=== PATIENT | male | born 1995 | race Caucasian/White ===

== ENCOUNTER 2016-11-23 03:41 | Emergency (ER) | payer OTHER ==
[~2016-11-23] VITALS: Ht 190.5 cm; Wt 82.0 kg
[2016-11-23 03:47] VITALS: TEMP 36.7; Ht 190.5 cm; Wt 82.0 kg
[2016-11-23 03:56] VITALS: O2SAT 100
[2016-11-23 05:18] LABS: BASO % 1.2 %; BASO ABS # 0.07 K/uL (0-0.2); COMPLETE YES; EOS % 3.6 %; HEMATOCRIT 47.4 % (42-52); IG% 0.2 %; LYMPH ABS # 1.41 K/uL (1.2-3.4); MEAN CELL VOLUME 90.8 fL (80-100); MEAN CORPUSCULAR HEMOGLOBIN 32.6 pg (25-34); MEAN CORPUSCULAR HGB CONC 35.9 g/dl (32-36); MEAN PLATELET VOLUME 11.7 fL (7.4-10.4); MONO % 13.8 %; NEUT % 57.2 %; PLATELET COUNT 199 K/uL (130-400); RED BLOOD COUNT 5.22 M/uL (4.7-6.1); WHITE BLOOD COUNT 5.88 K/uL (4.8-10.8)
[2016-11-23 05:36] LABS: ALT/SGPT 25 U/L (12-78); AST/SGOT 20 U/L (15-37); BLOOD UREA NITROGEN 6 mg/dl (7-18); BUN/CREATININE RATIO 6.4 (10-20); CALCIUM 9.1 mg/dl (8.5-10.1); CARBON DIOXIDE 27 mmol/L (21-32); CHLORIDE 105 mmol/L (98-107); CREATININE 0.94 mg/dl (0.60-1.40); GLUCOSE 83 mg/dl (70-99); POTASSIUM 4.1 mmol/L (3.5-5.1); SODIUM 139 mmol/L (136-145)
[2016-11-23 05:41] LABS: ALB/GLOB RATIO 1.1 (0.9-2); ALKALINE PHOSPHATASE 119 U/L (45-117); CKMB/CK RATIO 0.8 (0-3.0)
--- NOTE | 2016-11-23 05:52 | DIAGNOSTIC IMAGING REPORT ---
CHEST 2 VIEWS ROUTINE HISTORY: 21 years-old Male acute left-sided chest pain. COMPARISON: None available TECHNIQUE: Frontal and lateral views of the chest FINDINGS: Cardiomediastinal and hilar silhouettes are within normal limits. No pneumothorax, pleural effusion or focal airspace consolidation. No overt pulmonary edema. The bones are grossly intact. IMPRESSION: No acute cardiopulmonary process. The above report was generated using voice recognition software. It may contain grammatical, syntax or spelling errors. Electronically signed by: Abraham Muhammad M.D. 11/23/2016 5:51 AM Dictated Date/Time: 11/23/2016 5:50 AM
[2016-11-23] MEDS ORDERED: KETOROLAC TROMETHAMINE 30 MG/ML VIAL IV STA (06:33)
[2016-11-23 07:01] VITALS: BP 126/73; PULSE 55; O2SAT 99
--- NOTE | 2016-11-23 07:10 | EMERGENCY ROOM VISIT NOTE ---
History Report prepared by Quoc: Jeannie Zapata Under the Supervision of: Dr. Beth Lowe D.O. First contact with patient: 04:03 Chief Complaint: RIB PAIN Stated Complaint: SLIGHT CHEST PAIN ON LEFTSIDE,WORSE WITH DEEP DONNA History of Present Illness The patient is a 21 year old male who presents to the Emergency Room with complaints of persistent chest pain starting around 0300. The patient went to sleep around 1999 yesterday evening and woke up around 0300. He had a slight pain in the left side of his chest upon waking. The pain worsens with deep breaths. He notes that 2 days ago, he fell to the ground while playing volleyball and injured his right knee. He denies any trauma to the chest at that time. He reports that over the past week he has been having spots in his vision intermittently. 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 He also had an episode of overwhelming anxiety last week. He had never had anxiety like that before. He denies any SOB, cough, sore throat, fever, chills, abdominal pain, urinary symptoms, leg cramping, or leg swelling. He denies any changes to his bowel movements. He denies any health problems. He does not smoke. He drove to and from [place] last weekend. His grandmother has a history of multiple blood clots. Source of History: patient Onset: 299 Position: chest (left) Quality: other (pain) Timing: other (persistent) Modifying Factors (Worsening): breathing Associated Symptoms: No fevers, No chills, No sorethroat, No cough, No SOB, No abdominal pain, No urinary symptoms Note: Pt reports anxiety, spots in vision. Pt denies leg swelling, leg cramping. Review of Systems See HPI for pertinent positives & negatives. A total of 10 systems reviewed and were otherwise negative. Past Medical & Surgical Medical Problems: (1) No chronic problems Family History Blood clots Social History Smoking Status: Never Smoker Alcohol Use: occasionally Drug Use: none Housing Status: lives with roommate Occupation Status: [employer] student Current/Historical Medications No Active Prescriptions or Reported Meds Allergies Coded Allergies: No Known Allergies (Unverified , 11/23/16) Physical Exam Vital Signs Date Time Temp Pulse Resp B/P (MAP) Pulse Ox O2 Delivery O2 Flow Rate FiO2 8/27/17 07:01 55 15 126/73 99 11/23/16 06:21 61 11/23/16 05:34 54 21 118/76 99 Room Air 11/23/16 04:02 56 11/23/16 03:56 100 Room Air 11/23/16 03:47 36.7 71 20 134/62 100 Room Air Physical Exam HEENT: Head - normocephalic and atraumatic Pupils are equal, round, and reactive to light. Extraocular eye muscles are intact, and sclera are anicteric. Nose - moist nasal mucosa without discharge. Mouth - moist buccal mucosa. Oropharynx is nonerythematous and there is no tonsillar exudate or edema noted. Neck: Supple; no JVD, nuchal rigidity, cervical lymphadenopathy, or auscultated bruits. Heart: Regular rate and rhythm. There is a normal S1 and S2 with no murmurs, clicks, or gallops appreciated. Lungs: Clear to auscultation bilaterally with no wheezes, rales, or rhonchi. Abdomen: Soft, completely nontender, nondistended, with good bowel sounds. There are no palpable pulsatile masses or hepatosplenomegaly. There is no guarding, rigidity, or rebound noted. Extremities: No evidence of cyanosis, clubbing, or edema. The patient has no palpable cords in his calves. He is unable to fully extend the right knee from the volleyball injury. There are easily palpable peripheral pulses. Skin: warm and dry with good turgor and no rashes. Medical Decision & Procedures ER Provider Diagnostic Interpretation: X-ray results as stated below per interpretation by me and the radiologist: CHEST 2 VIEWS ROUTINE HISTORY: 21 years-old Male acute left-sided chest pain. COMPARISON: None available TECHNIQUE: Frontal and lateral views of the chest FINDINGS: Cardiomediastinal and hilar silhouettes are within normal limits. No pneumothorax, pleural effusion or focal airspace consolidation. No overt pulmonary edema. The bones are grossly intact. IMPRESSION: No acute cardiopulmonary process. The above report was generated using voice recognition software. It may contain grammatical, syntax or spelling errors. Electronically signed by: Abraham Muhammad M.D. 11/23/2016 5:51 AM Dictated Date/Time: 11/23/2016 5:50 AM Laboratory Results 11/23/16 05:00 Red Blood Count 5.22, Mean Corpuscular Volume 90.8, Mean Corpuscular Hemoglobin 32.6, Mean Corpuscular Hemoglobin Concent 35.9, Mean Platelet Volume 11.7, Neutrophils (%) (Auto) 57.2, Lymphocytes (%) (Auto) 24.0, Monocytes (%) (Auto) 13.8, Eosinophils (%) (Auto) 3.6, Basophils (%) (Auto) 1.2, Neutrophils # (Auto ) 3.37, Lymphocytes # (Auto) 1.41, Monocytes # (Auto) 0.81, Eosinophils # (Auto ) 0.21, Basophils # (Auto) 0.07 11/23/16 05:00 Test 11/23/16 05:00 White Blood Count 5.88 K/uL (4.8-10.8) Red Blood Count 5.22 M/uL (4.7-6.1) Hemoglobin 17.0 g/dL (14.0-18.0) Hematocrit 47.4 % (42-52) Mean Corpuscular Volume 90.8 fL (80-100) Mean Corpuscular Hemoglobin 32.6 pg (25-34) Mean Corpuscular Hemoglobin Concent 35.9 g/dl (32-36) Platelet Count 199 K/uL (130-400) Mean Platelet Volume 11.7 fL (7.4-10.4) Neutrophils (%) (Auto) 57.2 % Lymphocytes (%) (Auto) 24.0 % Monocytes (%) (Auto) 13.8 % Eosinophils (%) (Auto) 3.6 % Basophils (%) (Auto) 1.2 % Neutrophils # (Auto) 3.37 K/uL (1.4-6.5) Lymphocytes # (Auto) 1.41 K/uL (1.2-3.4) Monocytes # (Auto) 0.81 K/uL (0.11-0.59) Eosinophils # (Auto) 0.21 K/uL (0-0.5) Basophils # (Auto) 0.07 K/uL (0-0.2) RDW Standard Deviation 41.8 fL (36.4-46.3) RDW Coefficient of Variation 12.5 % (11.5-14.5) Immature Granulocyte % (Auto) 0.2 % Immature Granulocyte # (Auto) 0.01 K/uL (0.00-0.02) D-Dimer 370 ug/L FEU (0-500) Anion Gap 7.0 mmol/L (3-11) Est Creatinine Clear Calc Drug Dose 143.0 ml/min Estimated GFR () 132.9 Estimated GFR (Non- 114.6 BUN/Creatinine Ratio 6.4 (10-20) Calcium Level 9.1 mg/dl (8.5-10.1) Total Bilirubin 0.6 mg/dl (0.2-1) Aspartate Amino Transf (AST/SGOT) 20 U/L (15-37) Alanine Aminotransferase (ALT/SGPT) 25 U/L (12-78) Alkaline Phosphatase 119 U/L (45-117) Total Creatine Kinase 232 U/L (39-308) Creatine Kinase MB 1.9 ng/ml (0.5-3.6) Creatine Kinase MB Ratio 0.8 (0-3.0) Troponin I < 0.015 ng/ml (0-0.045) Total Protein 8.0 gm/dl (6.4-8.2) Albumin 4.1 gm/dl (3.4-5.0) Globulin 3.9 gm/dl (2.5-4.0) Albumin/Globulin Ratio 1.1 (0.9-2) Laboratory results per my review. Medications Administered Medications (Trade) Dose Ordered Sig/Tiara Route Start Time Stop Time Status Last Admin Dose Admin Ketorolac Tromethamine (Toradol Inj) 30 mg NOW STAT IV 11/23/16 06:33 11/23/16 06:34 DC 11/23/16 06:40 30 MG Procedure Medications: Toradol Inj 30 mg IV. ECG Indication: chest pain Rate (beats per minute): 53 Rhythm: sinus bradycardia Findings: no acute ischemic change, no ectopy ED Course 0426: The patient was evaluated in room B4B. A complete history and physical examination were performed. Nursing notes and previous electronic medical records were reviewed. IV lock was established and labs were drawn as above. A twelve-lead EKG was obtained. A chest x-ray was performed. 0624: I went to reevaluate the patient, but he was in the bathroom. 0630: I reevaluated the patient. I reviewed the chest x-ray and laboratory findings with the patient He still has some discomfort in his chest. He will be given Toradol. His oxygen saturation was normal. 0633: Toradol Inj 30 mg IV. 0654: Upon reevaluation, the patient has had some relief with the Toradol. I discussed findings and results with him. He verbalized agreement of the treatment plan. He was discharged home. Medical Decision The patient is a 21 year old male who presents to the ED with chest pain. Differential diagnosis includes pneumonia, PE, pleurisy, costochondritis, GERD, pericarditis. Labs: normal white count, stable H&H, normal renal function, glucose 83, normal LFTs, negative cardiac enzymes, D-dimer 370. The patient presents with this left-sided chest discomfort that seems to worsen with deep breathing. The patient has a negative d-dimer, normal heart rate, normal oxygen saturation and has no complete systems shortness of breath. My suspicion for PE is fairly low. However, I took and the consideration the episode of spots in the patient's vision from a couple of days ago. These visual symptoms have resolved. He is no longer vomiting. He questioned whether this could've been secondary to anxiety. There is certainly a possibility that the left-sided chest discomfort may be musculoskeletal in origin since the patient did suffer a fall while playing volleyball and injured his right knee. The patient has no associated symptoms to suggest that the chest discomfort is secondary to GERD. I considered the possibility of pericarditis. The patient has a normal EKG. He had moderate relief of his symptoms with the IV Toradol. I've asked the patient to avoid shadows activity over the next couple of days until he is symptom-free. If the discomfort persists, he will require close follow-up with student health services. If the patient develops any shortness of breath or worsening left- sided chest discomfort, he would return to the emergency department for additional evaluation. Impression Primary Impression: Left sided chest pain Scribe Attestation The scribe's documentation has been prepared under my direction and personally reviewed by me in its entirety. I confirm that the note above accurately reflects all work, treatment, procedures, and medical decision making performed by me. Departure Information Dispostion Home / Self-Care Prescriptions No Active Prescriptions or Reported Meds Referrals No Doctor, Assigned (PCP) Forms HOME CARE DOCUMENTATION FORM, IMPORTANT VISIT INFORMATION, WORK / SCHOOL INSTRUCTIONS Patient Instructions ED Chest Pain NonCardiac, [facility] Additional Instructions Rest. No strenuous activity until pain free. Follow up with PCP if pain continues. Tylenol or motrin for pain Return to the ER for worsening symptoms
== END 2016-11-23 07:04 | disposition home or self-care (01) ==
LOC: C.EDB 03:43
DX: R07.9 Chest pain, unspecified (principal)